=== PATIENT | female | born 1980 | race Caucasian/White ===

== ENCOUNTER 2016-11-07 20:23 | Outpatient (CLI) ==
[2015-10-27 14:07] VITALS: BMI 38.6
== END 2016-11-07 20:24 | disposition home or self-care (01) ==
LOC: AMBL 20:23
PROVIDERS: ATTEND Emergency Medicine
DX: R45.851 Suicidal ideations (principal); F41.9 Anxiety disorder, unspecified; F32.9 Major depressive disorder, single episode, unspecified